=== PATIENT | male | born 1965 | race Hispanic/Latino ===

== ENCOUNTER 2017-04-14 08:07 | Outpatient (CLI) | payer OTHER ==
--- NOTE | 2017-04-14 09:30 | XRay Report ---
Right hip 2 views. History: Hip pain. Findings: There is moderate to severe narrowing of the right hip joint space. Bony mineralization is normal. No soft tissue abnormalities are seen. Impression: Osteoarthritis.
== END 2017-04-14 08:08 | disposition home or self-care (01) ==
LOC: SPVIMAG 08:07
PROVIDERS: ATTEND Orthopaedic Surgery Sports Medicine
DX: M17.11 Unilateral primary osteoarthritis, right knee (principal)